=== PATIENT | male | born 1995 ===

== ENCOUNTER 2017-06-03 11:39 | Emergency (ER) | payer OTHER ==
[2017-06-03 11:40] VITALS: BMI 19.9
[2017-06-03 11:58] VITALS: RESP 18
[2017-06-03] MEDS ORDERED: cefTRIAXone (Rocephin) 250 mg Inj IM STA (12:18)
--- NOTE | 2017-06-03 12:23 | C.PDOC ---
History Of Present Illness 22 year old male presents to the ED for evaluation of penile discharge associated with dysuria for 1 day. Patient reports he is sexually active. Patient denies trauma, injury, hematuria, back pain, fever chills. Time Seen by Provider: 06/03/17 12:09 Chief Complaint (Nursing): Male Genitourinary History Per: Patient History/Exam Limitations: no limitations Onset/Duration Of Symptoms: Days Current Symptoms Are (Timing): Still Present Quality Of Discomfort: "Pain" Associated Symptoms: Urinary Symptoms Recent travel outside of the [place]: No Additional History Per: Patient Past Medical History Reviewed: Historical Data, Nursing Documentation, Vital Signs Vital Signs: Last Vital Signs Temp 98.1 F 06/03/17 13:29 Pulse 60 06/03/17 13:29 Resp 18 06/03/17 13:29 BP 111/66 06/03/17 13:29 Pulse Ox 99 06/03/17 13:29 - Medical History PMH: No Chronic Diseases Surgical History: Tonsillectomy Family History: States: Unknown Family Hx - Social History Hx Alcohol Use: No Hx Substance Use: No - Immunization History Hx Tetanus Toxoid Vaccination: No Hx Influenza Vaccination: No Hx Pneumococcal Vaccination: No Review Of Systems Constitutional: Negative for: Fever, Chills Cardiovascular: Negative for: Chest Pain, Palpitations Respiratory: Negative for: Cough, Shortness of Breath Genitourinary: Positive for: Dysuria, Penile Discharge Musculoskeletal: Negative for: Back Pain Skin: Negative for: Rash Neurological: Negative for: Weakness, Numbness Physical Exam - Physical Exam Appears: Non-toxic, No Acute Distress Skin: Normal Color, Warm, Dry Head: Atraumatic, Normacephalic Eye(s): bilateral: Normal Inspection Nose: No Discharge, No Deformity Oral Mucosa: Moist Gastrointestinal/Abdominal: Soft, No Tenderness, No Guarding, No Rebound Male Genital: No Testicular Tenderness, No Testicular Swelling, No Scrotal Swelling, No Circumcised (uncircumcised), Other (yellow d/c from penis, testicle descended ) Neurological/Psych: Oriented x3, Normal Speech, Normal Cognition Gait: Steady ED Course And Treatment O2 Sat by Pulse Oximetry: 100 (On RA) Pulse Ox Interpretation: Normal Medical Decision Making Medical Decision Making: Impression : urethritis Plan: * Chlamydia/GC test * Zithromax 1,000 mg PO * Rocephin 250 mg IM * Urine culture * UA Disposition Counseled Patient/Family Regarding: Studies Performed, Diagnosis, Need For Followup, Rx Given - Disposition Referrals: [facility] [Outside] Disposition: HOME/ ROUTINE Disposition Time: 12:45 Condition: STABLE Additional Instructions: follow up with doctor in 2 days call to make an appointment continue medications at home return to ER if symptoms worsens or progress no sex for one week have your partner seen by doctor and evaluated take advil or aleve as needed for pain Instructions: Urinary Tract Infection in Men (DC) Forms: [employer] (Micronesian) Print Language: AZERI - Clinical Impression Clinical Impression: Urethritis - Scribe Statement The provider has reviewed the documentation as recorded by the Scribe Mauro Tamayo All medical record entries made by the Keithibalessandra were at my direction and personally dictated by me. I have reviewed the chart and agree that the record accurately reflects my personal performance of the history, physical exam, medical decision making, and the department course for this patient. I have also personally directed, reviewed, and agree with the discharge instructions and disposition.
[2017-06-03 13:00] LABS: URINE BILIRUBIN NEGATIVE (NEGATIVE); URINE BLOOD NEGATIVE (NEGATIVE); URINE CLARITY Clear (Clear); URINE COLOR Yellow (YELLOW); URINE GLUCOSE (UA) NORMAL (Normal); URINE LEUKOCYTE ESTERASE 1+ Leu/uL (Negative); URINE NITRATE NEGATIVE (NEGATIVE); URINE PROTEIN NEGATIVE (NEGATIVE)
[2017-06-03 13:30] VITALS: BP 111/66; PULSE 60; TEMP 98.1
[2017-06-04 17:19] VITALS: O2SAT 100
== END 2017-06-03 13:30 | disposition home or self-care (01) ==
LOC: C.ER 11:39
DX: N34.2 Other urethritis (principal)
CPT/HCPCS: 81001; 87086; 87491; 87591; 96372; 99284; J0696